=== PATIENT | male | born 1960 | race Caucasian/White ===

== ENCOUNTER 2018-10-05 09:17 | Day surgery (SDC) | payer OTHER ==
[~2018-10-05] VITALS: Ht 180.3 cm; Wt 92.2 kg
[2018-10-05] MEDS ORDERED: LOSA25TA6 PO (10:10)
[2018-10-05] MEDS ORDERED: MESA1.2T PO (10:10)
[2018-10-05] MEDS ORDERED: AMLO-150 PO (10:10)
[2018-10-05] MEDS ORDERED: ATOR10TA9 PO (10:10)
[2018-10-05] MEDS ORDERED: ESOM20CA PO (10:10)
[2018-10-05] MEDS ORDERED: HUMIRA SC (10:10)
[2018-10-05] MEDS ORDERED: LACTATED RINGERS 1,000 ML IV SCH (10:11)
[2018-10-05 10:12] VITALS: BP 120/66
[2018-10-05 10:50] LABS: ALANINE AMINOTRANSFERASE 50 U/L (12-78); ALBUMIN 3.8 g/dL (3.4-5.0); ANION GAP 11 mmol/L (5-15); CALCIUM 8.6 mg/dL (8.5-10.1); CHLORIDE 108 mmol/L (98-107); CREATININE 1.12 mg/dL (0.7-1.3)
[2018-10-05 10:52] LABS: ALKALINE PHOSPHATASE 73 U/L (45-117); TOTAL PROTEIN 7.7 g/dL (6.4-8.2)
[2018-10-05] MEDS ORDERED: PROPOFOL 10 MG/ML, 50ML ONE (11:48)
[2018-10-05] MEDS ORDERED: MIDAZOLAM 1 MG/ML, 2ML ONE (11:52)
[2018-10-05] MEDS ORDERED: FENTANYL PF 100 MCG/2ML IV PRN (13:00)
[2018-10-05] MEDS ORDERED: MEPERIDINE/PF 25MG/0.5ML IVPush PRN (13:00)
[2018-10-05] MEDS ORDERED: ONDANSETRON 2MG/ML, 2ML IVPush PRN (13:00)
[2018-10-05] MEDS ORDERED: HYDROmorphone 1 MG/ML, 1ML IV PRN (13:00)
[2018-10-05] MEDS ORDERED: OXYcodone 5 MG/5 ML ORAL.SOL UDC PO PRN (13:00)
[2018-10-05] MEDS ORDERED: MIDAZOLAM 1 MG/ML, 2ML IV PRN (13:00)
[2018-10-05] MEDS ORDERED: LABETALOL 5MG/ML, 20ML IV PRN (13:00)
== END 2018-10-05 13:45 | disposition home or self-care (01) ==
LOC: OUT 09:17
PROVIDERS: ATTEND Internal Medicine
DX: D12.5 Benign neoplasm of sigmoid colon (principal); K51.00 Ulcerative (chronic) pancolitis without complications; K57.30 Diverticulosis of large intestine without perforation or abscess without bleeding; K22.710 Barrett's esophagus with low grade dysplasia; K21.9 Gastro-esophageal reflux disease without esophagitis; I10 Essential (primary) hypertension; E78.00 Pure hypercholesterolemia, unspecified; Z98.890 Other specified postprocedural states
CPT/HCPCS: 36415; 45385; 80053; 88305; J2250; J2704; J7120

== ENCOUNTER 2021-05-05 10:26 | Emergency (ER) | payer OTHER ==
[~2021-05-05] VITALS: Ht 180.3 cm; Wt 99.2 kg
[~2021-05-05 10:26] MED LIST: AMLO-150 PO; ATOR10TA9 PO; ESOM20CA PO; HUMIRA SC; LOSA25TA25 PO; MESA1.2T PO
[2021-05-05] MEDS ORDERED: ADENOSINE 6 MG/2 ML ONE (10:44)
--- NOTE | 2021-05-05 10:47 | NUR ---
ASSUMED CARE OF PT. 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 PT HR IN 200'S, BEDSIDE. PT CONVERTED BACK TO HR IN 100. HTN, TACHYCARDIC VS, NADN. CALL LIGHT W/IN REACH.
[2021-05-05] MEDS ORDERED: SODIUM CHLORIDE 0.9% 1,000ML IVBOLUS ONE (11:00)
[2021-05-05] MEDS ORDERED: METOPROLOL 1 MG/ML, 5ML IVPush ONE (11:00)
[2021-05-05] MEDS ORDERED: SODIUM CHLORIDE FLUSH 10ML SYR IVF ONE (11:00)
--- NOTE | 2021-05-05 11:00 | NUR ---
PT HR CONTINUES TO BE LOW 100, PIV STARTED AND BOLUS ADMINSTERED PER DEC. CXR COMPLETED, LABS SENT. NADN, CALL LIGHT W/IN REACH.
[2021-05-05] MEDS ORDERED: METOPROLOL 1 MG/ML, 5ML ONE (11:03)
--- NOTE | 2021-05-05 11:15 | NUR ---
PT MEDICATED PER MAR, HR IN 80'S. VSS, NADN CALL LIGHT W/ IN REACH.
[2021-05-05 11:20] LABS: BASOPHILS % (AUTO) 1 % (0-1); EOSINOPHILS % (AUTO) 3 % (1-7); LYMPHOCYTES % (AUTO) 48 % (22-44); MEAN CORPUSCULAR HEMOGLOBIN 32.3 pg (27.5-34.5); MEAN CORPUSCULAR HGB CONC 34.3 g/dL (33.2-36.2); MEAN PLATELET VOLUME 9.3 fL (7.4-10.4); MONOCYTES % (AUTO) 8 % (2-9); NEUTROPHILS % (AUTO) 41 % (42-75); PLATELET COUNT 276 x10^3/uL (130-400); RED BLOOD COUNT 5.43 x10^6/uL (4.38-5.82); RED CELL DISTRIBUTION WIDTH 13.2 % (9.4-14.8)
[2021-05-05 11:25] LABS: ALANINE AMINOTRANSFERASE 78 U/L (12-78); ALBUMIN 3.8 g/dL (3.4-5.0); ANION GAP 5 mmol/L (5-15); CALCIUM 8.5 mg/dL (8.5-10.1); CHLORIDE 108 mmol/L (98-107)
[2021-05-05 11:30] LABS: ALKALINE PHOSPHATASE 66 U/L (45-117); BILIRUBIN,TOTAL 0.8 mg/dL (0.2-1.0); TROPONIN I < 0.015 ng/mL (0.000-0.045)
--- NOTE | 2021-05-05 11:48 | NUR ---
REPEAT EKG COMPLETED. PT HR MAINTAINS IN 80'S, VSS, NADN CALL LIGHT W/IN REACH
[2021-05-05 12:22] VITALS: BP 141/93
--- NOTE | 2021-05-05 12:23 | NUR ---
Patient given discharge instructions and they have confirmed that they understand the instructions. Patient ambulatory with steady gait.
== END 2021-05-05 12:36 | disposition home or self-care (01) ==
LOC: ED 12:00
DX: I47.1 Supraventricular tachycardia (principal); R00.2 Palpitations; E87.6 Hypokalemia; I10 Essential (primary) hypertension
CPT/HCPCS: 36415; 71045; 80053; 83735; 83880; 84443; 84484; 85025; 93005; 96361; 96374; 99285; J7030